=== PATIENT | female | born 1950 | race Caucasian/White ===

== ENCOUNTER 2019-11-29 21:02 | Emergency (ER) | payer BC, MEDICARE, SELFPAY ==
--- NOTE | ~2019-11-29 | XR_ITS ---
EXAMINATION: XR chest 2V EXAM DATE: 11/29/2019 21:31 INDICATION: Generalized chest pain. SVT. Tachycardia. TECHNIQUE: Frontal and lateral projections of the chest obtained and reviewed. There is no prior lee ann dy for comparison. FINDINGS: The lungs are clear. There are no pleural effusions. The cardiomediastinal silhouette is within normal limits. There is no pneumothorax suspected. The bones and soft tissues are unremarkab le. Moderate sized thoracic endplate osteophytes. 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 IMPRESSION: No acute cardiopulmonary findings. Reviewed, dictated and finalized at location A. E PACKER
--- NOTE | 2019-11-29 21:11 | ECG_ITS ---
Measurements Intervals [place] Rate: 96 P: 68 SD: 167 QRS: 59 QRSD: 89 T: 47 QT: 321 QTc: 407 Interpretive Statements SINUS RHYTHM POSSIBLE LEFT ATRIAL ENLARGEMENT BASELINE WANDER- I, II BORDERLINE ECG Electronically Signed On 11-30-2019 6:42:30 [employer]AISAL SPECIALIST by Cristobal Phan D.O.
[2019-11-29 21:12] VITALS: BP 186/115; PULSE 126; RESP 18; TEMP 36.2; O2SAT 97
[2019-11-29 21:32] LABS: Basophils Percent Auto 0.5 % (0.2-1.2); Eosinophils Absolute Auto 0.1 K/mm3 (0-0.3); Eosinophils Percent Auto 1.4 % (0-4.4); Hematocrit 43.8 % (37.0-47.0); Hemoglobin 14.9 g/dL (12.0-15.0); Immature Granulocyte Absolute 0.02 K/mm3 (0.00-0.031); Immature Granulocyte Percent A 0.3 % (0-0.5); Lymphocytes Absolute Auto 2.81 K/mm3 (0.9-3.2); Lymphocytes Percent Auto 38.5 % (18.3-44.2); Mean Corpuscular Hemoglobin 29.1 pg (26-34); Mean Corpuscular Volume 85.5 fl (80-100); Monocytes Absolute Auto 0.5 K/mm3 (0.1-0.6); Monocytes Percent Auto 6.2 % (2.6-8.5); Neutrophils Absolute Auto 3.9 K/mm3 (1.3-6.7); Neutrophils Percent Auto 53.1 % (45.5-73.1); Platelet Count Result 314 k/mm3 (150-375); Red Blood Count 5.12 M/mm3 (4.2-5.4); Red Cell Distribution Width 12.2 % (11.5-14.5); White Blood Count 7.3 K/mm3 (4.5-10.0)
[2019-11-29 21:42] LABS: INR 0.9; Partial Thromboplastin Time 26.7 SECONDS (22.3-36.8); Prothrombin Time 12.2 Seconds (11.1-14.7)
[2019-11-29 21:43] LABS: Blood Urea Nitrogen 22 mg/dL (7-17); Calcium 10.2 mg/dL (8.4-10.2); Carbon Dioxide 26 mmol/L (22-30); Chloride 94 mmol/L (98-107); Estimated CRCL calculation 67 ml/min; Estimated Glomerular Filt Rate > 60; Glucose 109 mg/dL (65-105); Potassium 3.6 mmol/L (3.4-5.0); Sodium 137 mmol/L (137-145)
[2019-11-29 21:55] LABS: Troponin I < 0.012 ng/mL (0.000-0.034)
--- NOTE | 2019-11-29 22:08 | ED.ARRPALP ---
HPI - Arrhythmia/Palpitations General Chief Complaint: Chest Pain Stated Complaint: SVT Time Seen by Provider: 11/29/19 22:00 Source: patient and RN notes reviewed Mode of arrival: ambulatory Limitations: no limitations History of Present Illness HPI narrative: Pt is a 69 y/o female with a Hx of SVT, who presents to the ED with c/o palpitations starting this evening. She notes that she has had intermittent episodes of SVT since May of 2019. Pt states that her most recent episode was on 09/22/19. She notes that she was evaluated in an ED for this episode, and states that she was placed on Metoprolol 25 mg. Pt notes that she quit taking the medication yesterday due to her scheduled cardiac ablation on 12/12/19. She states that she began having an elevated HR and BP around 19:45 this evening. Pt notes that her palpitations lasted for roughly 10 minutes, which concerned her due to her previous episodes only lasting for 4-5 minutes. She reports chest heaviness accompanying her palpitations, but denies any CP currently. Pt does state that she has been anxious recently due to her daughter being in the hospital. She notes that she hasn't taken any Metoprolol this evening. complaint: rapid heart beat Onset (ago): hour(s) (2) Duration: now resolved Arrhythmia history: SVT Associated symptoms: chest pain (chest heaviness (resolved)) and anxiety Related Data Allergies Allergy/AdvReac Type Severity Reaction Status Date / Time aspirin [From Fiorinal] Allergy Hives Verified 11/29/19 21:21 butalbital [From Fiorinal] Allergy Hives Verified 11/29/19 21:21 caffeine [From Fiorinal] Allergy Hives Verified 11/29/19 21:21 Penicillins Allergy Hives Verified 11/29/19 21:21 acetaminophen AdvReac Other Verified 11/29/19 21:21 ibuprofen AdvReac Other Verified 11/29/19 21:21 Review of Systems Review of Systems: All systems reviewed & are unremarkable except as noted in HPI and below Cardiovascular: Cardiovascular: Reports chest pain (chest heaviness (resolved)) and Reports palpitations Psychiatric: Psychiatric: Reports anxiety PMFSH Past Medical History Medical History HTN (hypertension) SVT (supraventricular tachycardia) Surgical History Surgical History Surgical history unknown Social History Social History Smoking status: Never smoker Gender identity (if verbalized by the patient): Female Exam Narrative: Exam Narrative: GENERAL: Well-appearing, well-nourished, and in no acute distress. HEAD: Normocephalic, atraumatic EYES: PERRLA and EOMI, conjunctiva clear without discharge THROAT:Mucous membranes moist, Oropharynx normal without erythema, exudate, peritonsillar swelling or fluctuance NECK: Supple, without lymphadenopathy or mass RESPIRATORY: No respiratory distress, Airway patent, Respirations non-labored, Clear to auscultation without rales, rhonchi or wheeze HEART: Regular rate and rhythm. No murmur heard. Normal peripheral pulses. ABDOMEN: Soft, nontender, nondistended, normal active bowel sounds. No masses. No rebound or guarding, No organomegaly. EXTREMITIES: No edema, normal strength with full range of motion. SKIN: Warm, dry, normal color without rash NEURO: Alert and oriented x3. CN 2-12 grossly intact. No focal deficits. PSYCH: Normal mood and affect. Course Course Emergency Course: Patient presented with episode of SVT prior to arrival. She has been in sinus rhythm. Her labs are unremarkable. She was given dose of metoprolol. She has no complaints now and she will be discharged. She will continue her metoprolol. Vital Signs Vital signs: Vital Signs Temperature 97.1 F L 11/29/19 21:12 Pulse Rate 126 H 11/29/19 21:12 Respiratory Rate 18 11/29/19 21:12 Blood Pressure 186/115 H 11/29/19 21:12 Pulse Oximetry 97 11/29/19 21:12 Temperature
[2019-11-29 22:15] VITALS: BP 148/103; PULSE 96; RESP 18; O2SAT 95
[2019-11-29] MEDS: ASPIRIN 81 MG CHEWABLE TABLET 324 MG PO (22:51)
[2019-11-29 22:52] VITALS: PULSE 94
[2019-11-29] MEDS: METOPROLOL TARTRATE 25 MG TABLET PO (22:52)
[2019-11-29] MEDS: Please add drug allergy info to patient profile. 1 EACH XX (22:52)
[2019-11-29 23:30] VITALS: BP 125/96; PULSE 100; RESP 18; O2SAT 97
[2019-11-30 00:55] LABS: Troponin I < 0.012 ng/mL (0.000-0.034)
[2019-11-30 01:35] VITALS: BP 103/58; PULSE 66; RESP 16; O2SAT 97
[2019-11-30 02:16] VITALS: BP 117/78; PULSE 61; RESP 16; O2SAT 99
== END 2019-11-30 02:18 | disposition home or self-care (01) ==
PROVIDERS: Emergency Medicine; Emergency Provider General Practice
DX: I47.1 Supraventricular tachycardia (principal); I10 Essential (primary) hypertension
CPT/HCPCS: 36415; 71046; 80048; 84484; 85025; 85610; 85730; 93005; 99284; A9270

== ENCOUNTER 2020-05-03 11:33 | Outpatient (CLI) | payer BC, MEDICARE, SELFPAY ==
--- NOTE | ~2020-05-03 | US_ITS ---
EXAMINATION: US right upper quadrant DATE: 05/03/2020 15:46 INDICATION: Elevated liver function tests TECHNIQUE: Multiple grayscale and Doppler ultrasound images of the abdomen were obtained. COMPARISON: None available FINDINGS: The head, body, and tail of the pancreas are normal. The liver is normal with normal echoge nicity and echotexture. No surface nodularity. Normal hepatopetal flow in the main portal vein. The g allbladder is normal with no abnormal wall thickening, pericholecystic fluid or stones. The normal co mmon bile duct measures 2 mm. There was no sonographic Chaney sign. IMPRESSION: 1. Normal sonographic study of the gallbladder. Reviewed, dictated and finalized at location B.
[2020-05-03 12:22] LABS: Cholesterol 259 mg/dL (0-200); HDL Direct 75 mg/dL; Triglycerides 189 mg/dL (<150)
[2020-05-03 12:32] LABS: LDL Cholesterol Direct 113 mg/dL
[2020-05-03 13:07] LABS: Hepatitis B Surface Antigen Negative (Negative)
[2020-05-03 13:13] LABS: HAV RESULT Negative (Negative); Hepatitis B Core IgM Result Negative (Negative)
[2020-05-03 13:25] LABS: Hepatitis C Virus Antibody Negative (Negative)
[2020-05-07 04:25] LABS: GGT 456 U/L (3-65)
[2020-05-07 22:14] LABS: Alkaline Phosphatase 206 U/L (37-153); Macrohepatic Isoenzymes 0 % (<=0)
== END 2020-05-03 11:34 | disposition home or self-care (01) ==
PROVIDERS: Visit Provider Internal Medicine
DX: R79.89 Other specified abnormal findings of blood chemistry (principal); Z79.899 Other long term (current) drug therapy
CPT/HCPCS: 36415; 76705; 80061; 80074; 82977; 84075; 84080

== ENCOUNTER 2020-08-02 06:48 | Outpatient (NON) | payer BC, MEDICARE, SELFPAY ==
[2020-08-02 20:28] LABS: SARS-CoV-2 RNA PCR Negative
== END 2020-08-02 06:49 ==
PROVIDERS: Visit Provider Internal Medicine
DX: Z20.828 Contact with and (suspected) exposure to other viral communicable diseases (principal)
CPT/HCPCS: 87635; C9803; U0003